=== PATIENT | male | born 1970 | race Caucasian/White ===

== ENCOUNTER 2018-11-27 19:29 | Emergency (ER) | payer MEDICAID, OTHER ==
[~2018-11-27] VITALS: Ht 175.3 cm; Wt 72.6 kg
[~2018-11-27 19:29] MED LIST: CIPROFLOXACIN500 M2 ORAL; METRONIDAZOLE500 MG ORAL; NKM; NORCO 5/3251 TAB ORAL
--- NOTE | 2018-11-27 19:45 | NUR ---
ED Nurse Note: Wounds were cleand with sterile water. Patient' face was cleaned, dry dressing was aplyed. Patient went dowt for CT.
[2018-11-27 19:51] VITALS: BP 132/71
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
--- NOTE | 2018-11-27 19:59 | NUR ---
ED Nurse Note: Patient is back from CT.
--- NOTE | 2018-11-27 20:27 | Diagnostic Imaging Report ---
EXAM: CT Head Without Intravenous Contrast CLINICAL HISTORY: Headache TECHNIQUE: Axial computed tomography images of the head/brain without intravenous contrast. CTDI is 0.15, 70.38, 28.19 mGy and DLP is 2104 mGy-cm. One or more of the following dose reduction techniques were used: automated exposure control, adjustment of the mA and/or kV according to patient size, use of iterative reconstruction technique. COMPARISON: 01/07/2013 FINDINGS: Brain: No acute intracranial hemorrhage, large hypodensity, or significant mass effect. Nonspecific areas of hypoattenuation in the periventricular white matter likely represent the sequela of chronic small vessel ischemic disease. Coarse calcification in the left frontal lobe. Ventricles: Ventricular and sulcal prominence advanced for the patient's age. Bones/joints: Age-indeterminate left nasal bone fracture. Soft tissues: Left facial hematoma. Postsurgical changes are present in the left face. Sinuses: High density fluid in the left maxillary sinus. Mastoid air cells: Unremarkable. IMPRESSION: No acute intracranial hemorrhage or calvarial fracture.
--- NOTE | 2018-11-27 20:34 | Diagnostic Imaging Report ---
EXAM: CT Maxillofacial Without Intravenous Contrast CLINICAL HISTORY: PAIN TECHNIQUE: Axial computed tomography images of the face without intravenous contrast. CTDI is 0.15, 70.38, 28.19 mGy and DLP is 2104 mGy-cm. One or more of the following dose reduction techniques were used: automated exposure control, adjustment of the mA and/or kV according to patient size, use of iterative reconstruction technique. COMPARISON: 01/07/2013. FINDINGS: Bones/joints: Fracture of the anterior wall of the left maxillary sinus. Age-indeterminate fracture of the left nasal bone. Nondisplaced fracture of the inferior wall of the left orbit. Soft tissues: Left facial hematoma. Postsurgical changes are present in the left face. Orbits: Bilateral globes appear intact. No extraocular muscle entrapment. Sinuses: High density fluid in the left maxillary sinus is concerning for hemorrhage. IMPRESSION: Fractures of the inferior wall of the left orbit, anterior wall of the left maxillary sinus, and left nasal bone.
[2018-11-27] MEDS ORDERED: HYDROcodone/Acetamin 5/325 tab ORAL ONE (21:00)
--- NOTE | 2018-11-27 21:20 | NUR ---
ED Nurse Note: Food and clothes were provided.
[2018-11-27] MEDS ORDERED: IBUPROFEN600 MG ORAL (21:38)
[2018-11-27] MEDS ORDERED: ACETAMINOPHEN-1 EAC1 ORAL (21:38)
[2018-11-27 21:50] VITALS: BP 132/71
--- NOTE | 2018-11-27 21:54 | NUR ---
ED Nurse Note: Pt cleared by health care Provider for discharge. DC instructions/prescription was given and explained to pt and verbalized understanding of teachings. All medical deviecs such as ID band removed. Pt is AAO x4, ambulatory and left with all personal belongings.
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
== END 2018-11-27 22:00 | disposition home or self-care (01) ==
LOC: EDBD 19:29 → EMR 19:45
DX: S02.80XA Fracture of other specified skull and facial bones, unspecified side, initial encounter for closed fracture (principal); S01.81XA Laceration without foreign body of other part of head, initial encounter; G51.8 Other disorders of facial nerve; Y04.2XXA Assault by strike against or bumped into by another person, initial encounter; Y92.9 Unspecified place or not applicable
CPT/HCPCS: 12013; 70450; 70486; Z7502; 99284